=== PATIENT | male | born 1955 | race African-American/Black ===

== ENCOUNTER → 2020-03-09 11:07 | Outpatient (BNVA) | payer MEDICARE, MEDICAID, OTHER, SELFPAY | PROVIDERS: PCP Internal Medicine; Visit Provider Orthopaedic Surgery | DX: M97.02XD Periprosthetic fracture around internal prosthetic left hip joint, subsequent encounter (principal); Z96.643 Presence of artificial hip joint, bilateral | CPT/HCPCS: 99212 ==

== ENCOUNTER 2020-03-23 09:00 | Outpatient (RCR) | payer MEDICARE, MEDICAID, OTHER, SELFPAY ==
--- NOTE | 2020-04-24 09:50 | MHC.PT.DC ---
[facility] [place] Office [place] Office [place] Office [address] Angie Tejeda [address] [phone] F: [phone] F: [phone] F: [phone] F: [phone] Physical Therapy Discharge Report Diagnosis: low back pain. Date of Surgery: 12/30/19 Date of Evaluation: 01/30/20 Date of Discharge: 04/24/20 Treatments to Date: 9 Cancellations to Date: 0 No Shows to Date: 3 Discharge Status: Improved Function Independent with HEP Visit Non-compliance Discharge Summary: Pt tolerated debora stretch better than last session. Pt fatigued after about 90% of the workout. I asked him to finish a few exercises at home including gastroc soleus stretch and hip abduction exercises. The patient feels he gets tired while walking very quickly. I believe this is due to poor hip flexibility /mobility which creates a strenuous walking pattern. pt no showed to his last 4 scheduled visits. He was mostly independent with his HEP. He is d/c due to visit non compliance Electronically signed by: Madisyn Wallace DPT Please sign and return to therapist. Thank you for your referral.
== END 2020-04-24 14:29 | disposition other institution (70) ==
LOC: HO.PT 09:00
PROVIDERS: Visit Provider Physician Assistant
DX: M17.12 Unilateral primary osteoarthritis, left knee (principal)
CPT/HCPCS: 97110; 97140

== ENCOUNTER → 2020-08-07 10:07 | Outpatient (BNVA) | payer MEDICARE, MEDICAID, SELFPAY | PROVIDERS: Visit Provider Orthopaedic Surgery | DX: M16.51 Unilateral post-traumatic osteoarthritis, right hip (principal); Z96.9 Presence of functional implant, unspecified | CPT/HCPCS: 99212 ==

== ENCOUNTER 2020-09-08 | Outpatient (REF) | payer OTHER, MEDICARE, MEDICAID, SELFPAY ==
--- NOTE | 2020-09-08 | ECG_ITS ---
Test Reason : PREOP Blood Pressure : / mmHG Vent. Rate : 061 BPM Atrial Rate : 061 BPM P-R Int : 136 ms QRS Dur : 092 ms QT Int : 422 ms P-R-T Axes : 069 066 072 degrees QTc Int : 424 ms Normal sinus rhythm Normal ECG When compared with ECG of 19-NOV-2019 14:37, No significant change was found Referred By: Asa Saldivar Electronically Signed By:LINDSAY ABARCA MD
[2020-09-08 11:47] VITALS: BMI 21.3
[2020-09-08 12:09] VITALS: BP 103/60; PULSE 68; RESP 18; O2SAT 96
[2020-09-08 13:45] LABS: MRSA Nasal PCR NEGATIVE (Negative); SA Nasal PCR POSITIVE (Negative)
[2020-09-08 13:54] LABS: MANUAL DIFF FLAG NO
[2020-09-08 14:01] LABS: Amphetamine Screen Urine Not Detected (Not Detect); Barbiturates, Urine Not Detected (Not Detect); Benzodiazepines Screen Urine Not Detected (Not Detect); Cannabinoid Screen Urine Not Detected (Not Detect); Cocaine Screen Urine Not Detected (Not Detect); Opiate Screen Urine POSITIVE (Not Detect); Phencyclidine Screen Urine Not Detected (Not Detect)
[2020-09-08 14:16] LABS: Basophils Percent Auto 0.4 % (0-2); Eosinophils Absolute Auto 0.6 X10*3/uL (0.0-0.4); Eosinophils Percent Auto 5.9 % (0-4); Hematocrit 37.5 % (42-52); Imm Gran Abs Auto 0.04 X10*3/uL (0.00-0.03); Imm Gran Pct Auto 0.4 % (0.0-0.4); Lymphocytes Absolute Auto 2.4 X10*3/uL (1.2-4.9); Lymphocytes Percent Auto 23.7 % (20-40); Mean Corpuscular Hemoglobin 30.9 pg (27.0-33.0); Mean Corpuscular Volume 96.6 fL (80-98); Mean Platelet Volume 9.6 fL (9.4-12.4); Monocytes Absolute Auto 0.8 X10*3/uL (0.1-1.2); Monocytes Percent Auto 8.2 % (2-11); Neutrophils Absolute Auto 6.1 X10*3/uL (2.0-8.3); Neutrophils Percent Auto 61.4 % (45-73); Platelet Count 339 X10*3/uL (160-400); Red Blood Count 3.88 X10*6/uL (4.60-5.80); Red Cell Distribution Width 14.8 % (11.0-16.0)
[2020-09-08 14:43] LABS: Anion Gap 15 (12-20); Blood Urea Nitrogen 27 mg/dL (9-16); Carbon Dioxide 22 mmol/L (22-29); Chloride 109 mmol/L (96-108); Creatinine Clr Calc Pharmacy 42.6; Estimated Glomerular Filt Rate 44; Potassium 4.3 mmol/L (3.3-5.1); Sodium 142 mmol/L (135-145)
== END 2020-09-08 00:01 | disposition home or self-care (01) ==
LOC: HO.PAT
PROVIDERS: Physician Assistant; PCP Internal Medicine; Visit Provider Orthopaedic Surgery
DX: Z01.818 Encounter for other preprocedural examination (principal); M16.11 Unilateral primary osteoarthritis, right hip
CPT/HCPCS: 36415; 80051; 80307; 82565; 84520; 85025; 86850; 86900; 86901; 87640; 87641; 93005

== ENCOUNTER 2020-11-18 14:20 | Emergency (ER) | payer OTHER, MEDICARE, MEDICAID, SELFPAY ==
--- NOTE | ~2020-11-18 | CT_ITS ---
EXAMINATION: CT HEAD WITHOUT CONTRAST CLINICAL INFORMATION: AMS COMPARISON: None TECHNIQUE: Contiguous axial imaging was performed from the skull base to vertex without intravenous administration of contrast. This CT examination was performed using dose optimization techniques as appropriate, variously including the following: *Automated exposure control *Adjustment of mA and/or kV according to patient size (this includes techniques or standardized protocols for targeted exams where dose is matched to indication/reason for exam; i.e. extremities or head) *Use of iterative reconstruction technique DLP: 741 mGy-cm FINDINGS: There is no evidence of acute intracranial hemorrhage or territorial infarction. No abnormal mass effect or midline shift is seen. Carlson to white matter differentiation is well preserved. No extra-axial fluid collections are identified. There are some small bilateral lacunar infarcts involving the anterior limbs of the internal capsules. The ventricles are normal in size. There is no abnormal attenuation within the brain parenchyma. The osseous structures are normal. The mastoid air cells are well aerated. There is some opacification of the ethmoid air cells anteriorly bilaterally. There is a large amount of cerumen within both external auditory canals. CT/CT head/brain wo con IMPRESSION: No acute intracranial pathology.
--- NOTE | 2020-11-18 14:25 | ED_ITS ---
HPI - Overdose General Chief Complaint: Altered Mental Status Stated Complaint: overdose Time Seen by Provider: 11/18/20 14:25 Source: EMS Mode of arrival: EMS Limitations: altered mental status and other (uncooperative) History of Present Illness HPI Narrative: [place], low BPs, somnolent, slightly hypoxic given narcan with good effect, agitated en route restrained by EMS MD complaint: accidental overdose Onset (ago): minute(s) Context: Accidental Overdose: uncertain what happened Treatments Prior to Arrival: narcan (4mg IN narcan, 0.5mg IV be EMS woke up with good effect became agitated and started yawning) Related Data Home Medications Medication Instructions Recorded Confirmed atenolol 50 mg tablet 50 mg PO BEDTIME 03/04/20 09/07/20 etodolac 300 mg capsule 300 mg PO BID 03/04/20 09/07/20 acetaminophen 650 mg PO BID PRN 09/07/20 09/07/20 amlodipine 5 mg PO DAILY 09/07/20 09/07/20 ipratropium-albuterol 1 puff INHALATION Q6H PRN 09/07/20 09/07/20 lisinopril 20 mg PO DAILY 09/07/20 09/07/20 multivitamin 1 tab PO DAILY 09/07/20 09/07/20 sennosides-docusate sodium [Senna 1 tab-cap PO QAM 09/07/20 09/08/20 with Docusate Sodium] spironolactone 25 mg PO DAILY 09/07/20 09/07/20 zolpidem 10 mg PO BEDTIME 09/07/20 09/07/20 aspirin [Aspirin Low Dose] 81 mg PO DAILY 09/08/20 09/08/20 Allergies Allergy/AdvReac Type Severity Reaction Status Date / Time No Known Allergies Allergy Verified 03/09/20 11:20 [No Known Allergies*] Review of Systems Review of Systems: ROS unable to be obtained due to patient being uncooperative PMFSH Past Medical History Attestation statement: The following information was validated with the patient. Medical History Drug dependence Hepatitis History of post traumatic stress disorder History of revision of total replacement of left hip joint HTN (hypertension) Primary osteoarthritis of hips, bilateral Shortness of breath Surgical History H/O colonoscopy History of surgery on right wrist History of total left hip replacement History of total right hip replacement Family History Family History Mother No problems noted. Father No problems noted. Social History Social History Are you a primary healthcare facility administrator to a significant other at home: No Do you presently have visiting nurse or other home services: Yes (home health aid) Alcohol intake: current Alcohol intake frequency: a few times a month Cigarettes Per Day: 5 Years Smoked: 35 Advance Directives: No Advance Directives Information Provided: No service: No Current occupational status: retired Current occupation: right handed Physical Exam Vital Signs: Vital Signs: Last Vital Signs Temp 96.7 F L 11/18/20 14:40 Pulse 60 11/18/20 14:40 Resp 18 11/18/20 14:40 BP 140/81 H 11/18/20 14:40 Pulse Ox 95 11/18/20 14:40 Body Mass Index 25.1 Appearance: Alert. Will not answer questions. mild acute distress. Swinging at staff, won't tell us his name, attempts to grab EMS - security at bedside Eyes: Pupils equal, round and reactive to light. ENT: Pharynx normal. Neck: Normal inspection. Neck supple. CVS: Normal heart rate and rhythm. Pulses normal. Respiratory: No respiratory distress. Breath sounds normal. Abdomen: Soft and non-tender. Skin: Skin warm and dry. Normal skin color. Normal skin turgor. Extremities: No lower extremity edema. No calf ttp Neuro: responds to voice but then will not participate in exam, tracks with eyes No motor deficit. No sensory deficit. Course Course Course Narrative: patient still being difficult when attempting to talk to him - not making much sense. why are you wearing that face thing? I don't do drugs. where is this place? at this time will obtain CT scan to r/o ICH in ED for 2.5 hours no need for repeat narcan, now appropriate, GCS 15, steady gait demanding to leave, clinically sober stable for DC CKD at baseline MDM - Overdose MDM Narrative Medical decision making narrative: 64 yo male known heroin abuser snorts, HTN, arthritis here after being found sleeping sitting upright - given prehospital narcan with good response, he is agitated, yawning in withdrawal, he is at tempting to strike staff - restrained on arrival due to staff safety issues and I cannot redirect him. labs, observation, no signs of trauma pateint found sitting upright - doubt ICH at this time Lab Data Result diagrams: 11/18/20 14:49 11/18/20 14:49 Labs: Lab Results 11/18/20 11/18/20 11/18/20 Range/Units 14:49 14:49 14:49 WBC 7.3 (4.8-10.8) X10*3/uL RBC 3.60 L (4.60-5.80) X10*6/uL Hgb 11.0 L (14.0-18.0) g/dl Hct 35.0 L (42-52) % MCV 97.2 (80-98) fL MCH 30.6 (27.0-33.0) pg MCHC 31.4 (31.0-36.0) g/dl RDW 14.6 (11.0-16.0) % Plt Count 314 (160-400) X10*3/uL MPV 9.5 (9.4-12.4) fL Immature Gran % (Auto) 0.4 (0.0-0.4) % Neut % (Auto) 60.1 (45-73) % Lymph % (Auto) 21.6 (20-40) % [place] % (Auto) 10.1 (2-11) % Eos % (Auto) 7.1 H (0-4) % Baso % (Auto) 0.7 (0-2) % Lymph # (Auto) 1.6 (1.2-4.9) X10*3/uL [place] # (Auto) 0.7 (0.1-1.2) X10*3/uL Eos # (Auto) 0.5 H (0.0-0.4) X10*3/uL Baso # (Auto) 0.1 (0.0-0.2) X10*3/uL Abs Immat Gran (auto) 0.03 (0.00-0.03) X10*3/uL Absolute Neuts (auto) 4.4 (2.0-8.3) X10*3/uL Absolute Nucleated RBC 0.000 (0.0-0.012) X10*3/uL Nucleated RBC % (auto) 0.0 (0.0-0.2) /100WBC Sodium 138 (135-145) mmol/L Potassium 5.0 (3.3-5.1) mmol/L Chloride 111 H (96-108) mmol/L Carbon Dioxide 17 L (22-29) mmol/L Anion Gap 15 (12-20) BUN 32 H (9-16) mg/dL Creatinine 1.87 H (0.5-1.4) mg/dL Estim Creat Clear Calc 40.6 Estimated GFR 36 Random Glucose 86 (60-115) mg/dL Calcium 9.2 (8.4-10.2) mg/dL Total Bilirubin 0.4 (0.0-1.0) mg/dL Direct Bilirubin 0.2 (0.0-0.5) mg/dL AST 20 (5-37) U/L ALT 8 (0-40) U/L Alkaline Phosphatase 98 (39-117) U/L Total Protein 7.1 (6.5-8.0) g/dL Albumin 3.8 (3.5-5.0) g/dL Ethyl Alcohol mg/dL COVID-19 (CANDI) Negative (Negative) COVID-19 Clin Com See Note 11/18/20 Range/Units 14:49 WBC (4.8-10.8) X10*3/uL RBC (4.60-5.80) X10*6/uL Hgb (14.0-18.0) g/dl Hct (42-52) % MCV (80-98) fL MCH (27.0-33.0) pg MCHC (31.0-36.0) g/dl RDW (11.0-16.0) % Plt Count (160-400) X10*3/uL MPV (9.4-12.4) fL Immature Gran % (Auto) (0.0-0.4) % Neut % (Auto) (45-73) % Lymph % (Auto) (20-40) % [place] % (Auto) (2-11) % Eos % (Auto) (0-4) % Baso % (Auto) (0-2) % Lymph # (Auto) (1.2-4.9) X10*3/uL [place] # (Auto) (0.1-1.2) X10*3/uL Eos # (Auto) (0.0-0.4) X10*3/uL Baso # (Auto) (0.0-0.2) X10*3/uL Abs Immat Gran (auto) (0.00-0.03) X10*3/uL Absolute Neuts (auto) (2.0-8.3) X10*3/uL Absolute Nucleated RBC (0.0-0.012) X10*3/uL Nucleated RBC % (auto) (0.0-0.2) /100WBC Sodium (135-145) mmol/L Potassium (3.3-5.1) mmol/L Chloride (96-108) mmol/L Carbon Dioxide (22-29) mmol/L Anion Gap (12-20) BUN (9-16) mg/dL Creatinine (0.5-1.4) mg/dL Estim Creat Clear Calc Estimated GFR Random Glucose (60-115) mg/dL Calcium (8.4-10.2) mg/dL Total Bilirubin (0.0-1.0) mg/dL Direct Bilirubin (0.0-0.5) mg/dL AST (5-37) U/L ALT (0-40) U/L Alkaline Phosphatase (39-117) U/L Total Protein (6.5-8.0) g/dL Albumin (3.5-5.0) g/dL Ethyl Alcohol 179 mg/dL COVID-19 ([facility]I) (Negative) COVID-19 Clin Com Discharge Plan Discharge Clinical Impression: Alcohol intoxication Qualifiers: Complication of substance-induced condition: uncomplicated Qualified Code(s): F10.920 - Alcohol use, unspecified with intoxication, uncomplicated Opiate overdose Qualifiers: Encounter type: initial encounter Injury intent: accidental or unintentional Qualified Code(s): T40.601A - Poisoning by unspecified narcotics, accidental (unintentional), initial encounter Patient Disposition: Home, Self-Care Instructions: Alcohol Intoxication (ED), Opioid Use Disorder (ED) Additional Instructions: return to ED for any worsening symptoms or concerns stop drinking and doing drugs Prescriptions: No Action lisinopril 20 mg Tablet 20 mg PO DAILY RF: 0 sennosides-docusate sodium [Senna with Docusate Sodium] 8.6-50 mg Tablet 1 tab-cap PO QAM RF: 0 amlodipine 5 mg Tablet 5 mg PO DAILY RF: 0 zolpidem 10 mg Tablet 10 mg PO BEDTIME RF: 0 multivitamin Tablet 1 tab PO DAILY RF: 0 acetaminophen 325 mg Tablet 650 mg PO BID PRN (Reason: Pain) RF: 0 spironolactone 25 mg Tablet 25 mg PO DAILY RF: 0 ipratropium-albuterol 20-100 mcg/actuation Mist 1 puff INHALATION Q6H PRN (Reason: Shortness Of Breath) RF: 0 aspirin [Aspirin Low Dose] 81 mg Tablet,Delayed Release (Dr/Ec) 81 mg PO DAILY RF: 0
[2020-11-18 14:40] VITALS: BP 140/81; PULSE 60; RESP 18; TEMP 35.9; O2SAT 95; BMI 25.1
[2020-11-18 15:11] LABS: MANUAL DIFF FLAG NO
[2020-11-18 15:18] LABS: Basophils Absolute Auto 0.1 X10*3/uL (0.0-0.2); Basophils Percent Auto 0.7 % (0-2); Eosinophils Absolute Auto 0.5 X10*3/uL (0.0-0.4); Eosinophils Percent Auto 7.1 % (0-4); Imm Gran Abs Auto 0.03 X10*3/uL (0.00-0.03); Imm Gran Pct Auto 0.4 % (0.0-0.4); Lymphocytes Absolute Auto 1.6 X10*3/uL (1.2-4.9); Lymphocytes Percent Auto 21.6 % (20-40); Mean Corpuscular HGB Conc 31.4 g/dl (31.0-36.0); Mean Corpuscular Hemoglobin 30.6 pg (27.0-33.0); Mean Corpuscular Volume 97.2 fL (80-98); Mean Platelet Volume 9.5 fL (9.4-12.4); Monocytes Absolute Auto 0.7 X10*3/uL (0.1-1.2); Monocytes Percent Auto 10.1 % (2-11); Neutrophils Absolute Auto 4.4 X10*3/uL (2.0-8.3); Neutrophils Percent Auto 60.1 % (45-73); Platelet Count 314 X10*3/uL (160-400); Red Cell Distribution Width 14.6 % (11.0-16.0); White Blood Count 7.3 X10*3/uL (4.8-10.8)
[2020-11-18 15:29] LABS: COVID-19 Test Negative (Negative)
[2020-11-18 15:37] LABS: Ethanol 179 mg/dL
[2020-11-18 15:41] LABS: Alanine Aminotransferase 8 U/L (0-40); Albumin Level 3.8 g/dL (3.5-5.0); Alkaline Phosphatase 98 U/L (39-117); Anion Gap 15 (12-20); Aspartate Amino Transferase 20 U/L (5-37); Bilirubin Direct 0.2 mg/dL (0.0-0.5); Bilirubin Total 0.4 mg/dL (0.0-1.0); Blood Urea Nitrogen 32 mg/dL (9-16); Calcium 9.2 mg/dL (8.4-10.2); Carbon Dioxide 17 mmol/L (22-29); Chloride 111 mmol/L (96-108); Creatinine Clr Calc Pharmacy 40.6; Estimated Glomerular Filt Rate 36; Glucose Random 86 mg/dL (60-115); Sodium 138 mmol/L (135-145); Total Protein 7.1 g/dL (6.5-8.0)
--- NOTE | 2020-11-18 16:38 | PC.NURSE ---
Patient is awake, and alert. Pt is questioning how he got to hospital. Pt informed that ems brought him to the hospital. Pt informed that he was found unresponsive and ems had to give him narcan. Pt states he knew what narcan was for that he uses heroine. Pt then states he has done a lot. When questioned how much, he stated that he has used 10 bags this past week.
--- NOTE | 2020-11-18 17:20 | PC.NURSE ---
Recovery support talking with patient
--- NOTE | 2020-11-18 17:25 | MHC.RECOVSUP ---
? Reason for consult Support o Current location: ED22 o Identified substance use concern: Heroin - Overdose ? Intervention: <del>o</del> <del>ATS</del> <del>bed</del> <del>search</del> <del>started/completed/in</del> <del>process</del> <del>o</del> <del>MAT</del> <del>started</del> <del>or</del> <del>to</del> <del>be</del> <del>started</del> <del>o</del> <del>Community</del> <del>resources</del> <del>provided</del> <del>o</del> <del>Harm</del> <del>reduction</del> <del>discussion</del> ? Plan: <del>o</del> <del>Referral</del> <del>to</del> <del>[facility]</del> <del>o</del> <del>Bed</del> <del>search</del> <del>in</del> <del>progress</del> <del>to</del> <del>o</del> <del>Follow</del> <del>up</del> <del>tomorrow</del> <del>o</del> <del>Patient</del> <del>awaiting</del> <del>crisis</del> <del>evaluation</del> <del>o</del> <del>Patient</del> <del>to</del> <del>follow</del> <del>up</del> <del>with</del> <del>[facility]</del> <del>after</del> <del>discharge</del> ? Additional information:Patient refused services
[2020-11-18 17:31] VITALS: PULSE 72; RESP 18; O2SAT 98
--- NOTE | 2020-11-18 17:38 | PC.NURSE ---
Patient given a sandwich and gingerale per his request
== END 2020-11-18 18:20 | disposition home or self-care (01) ==
PROVIDERS: Emergency Provider Emergency Medicine
DX: T40.601A Poisoning by unspecified narcotics, accidental (unintentional), initial encounter (principal); Y92.9 Unspecified place or not applicable; F10.120 Alcohol abuse with intoxication, uncomplicated; Y90.6 Blood alcohol level of 120-199 mg/100 ml; I10 Essential (primary) hypertension; Z79.899 Other long term (current) drug therapy; Z20.822 Contact with and (suspected) exposure to COVID-19
CPT/HCPCS: 36415; 70450; 80048; 80076; 82077; 85025; 87635; 99284; 99285

== ENCOUNTER 2020-11-30 09:40 | Outpatient (REF) | payer MEDICARE, MEDICAID, SELFPAY | END 2020-11-30 09:41 | disposition home or self-care (01) | LOC: HO.HOSX 09:40 | PROVIDERS: Visit Provider Orthopaedic Surgery | DX: Z13.89 Encounter for screening for other disorder (principal) ==

== ENCOUNTER 2021-01-01 12:33 | Emergency (ER) | payer MEDICARE, MEDICAID, SELFPAY ==
[2021-01-01 13:16] VITALS: BP 119/65; PULSE 67; RESP 18; TEMP 37.1; O2SAT 100; BMI 17.1
--- NOTE | 2021-01-01 13:55 | PC.NURSE ---
pt eloped without being seen by ed provider. Provider aware.
--- NOTE | 2021-01-01 16:27 | ED.OVERDOSE ---
HPI - Overdose General Chief Complaint: Overdose Stated Complaint: OVERDOSE Source: EMS and RN notes reviewed History of Present Illness HPI Narrative: Patient eloped from the ER without medical staff knowing. Nurse states EMS informed her that patient had a heroin overdose that was accidental. Related Data Home Medications Medication Instructions Recorded Confirmed atenolol 50 mg tablet 50 mg PO BEDTIME 03/04/20 09/07/20 etodolac 300 mg capsule 300 mg PO BID 03/04/20 09/07/20 acetaminophen 325 mg tablet 650 mg PO BID PRN 09/07/20 09/07/20 amlodipine 5 mg tablet 5 mg PO DAILY 09/07/20 09/07/20 ipratropium 20 mcg-albuterol 100 1 puff INHALATION Q6H PRN 09/07/20 09/07/20 mcg/actuation mist for inhalation lisinopril 20 mg tablet 20 mg PO DAILY 09/07/20 09/07/20 multivitamin 1 tab PO DAILY 09/07/20 09/07/20 sennosides 8.6 mg-docusate sodium 1 tab-cap PO QAM 09/07/20 09/08/20 50 mg tablet (Senna with Docusate Sodium) spironolactone 25 mg tablet 25 mg PO DAILY 09/07/20 09/07/20 zolpidem 10 mg tablet 10 mg PO BEDTIME 09/07/20 09/07/20 aspirin 81 mg tablet,delayed 81 mg PO DAILY 09/08/20 09/08/20 release (Aspirin Low Dose) Allergies Allergy/AdvReac Type Severity Reaction Status Date / Time No Known Allergies Allergy Verified 03/09/20 11:20 [No Known Allergies*] [facility] Past Medical History Medical History Drug dependence Hepatitis History of post traumatic stress disorder History of revision of total replacement of left hip joint HTN (hypertension) Primary osteoarthritis of hips, bilateral Shortness of breath Surgical History H/O colonoscopy History of surgery on right wrist History of total left hip replacement History of total right hip replacement Family History Family History Mother No problems noted. Father No problems noted. Social History Social History Are you a primary medical care administrator to a significant other at home: No Do you presently have visiting nurse or other home services: Yes (home health aid) Alcohol intake: current Alcohol intake frequency: a few times a month Cigarettes Per Day: 5 Years Smoked: 35 Advance Directives: No Advance Directives Information Provided: Yes service: No Current occupational status: retired Current occupation: right handed Physical Exam Vital Signs: Vital Signs: Last Vital Signs Temp 98.7 F 01/01/21 13:16 Pulse 67 01/01/21 13:16 Resp 18 01/01/21 13:16 BP 119/65 01/01/21 13:16 Pulse Ox 100 01/01/21 13:16 Body Mass Index 17.1 Course Course Course Narrative: Patient eloped. Reevaluation(s) Reevaluation #1: Patient eloped before he could be evaluated. Discharge Plan Discharge Clinical Impression: Drug overdose Patient Disposition: Elopement Prescriptions: No Action lisinopril 20 mg Tablet 20 mg PO DAILY RF: 0 sennosides-docusate sodium [Senna with Docusate Sodium] 8.6-50 mg Tablet 1 tab-cap PO QAM RF: 0 amlodipine 5 mg Tablet 5 mg PO DAILY RF: 0 zolpidem 10 mg Tablet 10 mg PO BEDTIME RF: 0 multivitamin Tablet 1 tab PO DAILY RF: 0 acetaminophen 325 mg Tablet 650 mg PO BID PRN (Reason: Pain) RF: 0 spironolactone 25 mg Tablet 25 mg PO DAILY RF: 0 ipratropium-albuterol 20-100 mcg/actuation Mist 1 puff INHALATION Q6H PRN (Reason: Shortness Of Breath) RF: 0 aspirin [Aspirin Low Dose] 81 mg Tablet,Delayed Release (Dr/Ec) 81 mg PO DAILY RF: 0 Discharge Date/Time: 01/01/21 16:33
== END 2021-01-01 16:33 | disposition left against medical advice (07) ==
PROVIDERS: Emergency Provider Internal Medicine
DX: T40.1X1A Poisoning by heroin, accidental (unintentional), initial encounter (principal); Y92.9 Unspecified place or not applicable; I10 Essential (primary) hypertension; F11.20 Opioid dependence, uncomplicated
CPT/HCPCS: 99281; 99282